=== PATIENT | male | born 1970 | race Caucasian/White ===

== ENCOUNTER 2021-08-23 10:53 | Emergency (ER) | payer OTHER ==
--- OUTSIDE RECORDS SUMMARY | 2021-08-23 10:55 | XMS REPORT | Continuity of Care Document ---
:1970 Author Organization [facility] t Address [address] [place] [address] Care Team Providers Name Role Phone Geronimo ANTOINE Primary Care Physician Unavailable Doctor Unassigned, Name Attending Clinician Unavailable Carmel MANN Attending Clinician CARMEL Attending Clinician Unavailable CARMEL Admitting Clinician Unavailable Payers Payer Name Policy Type Policy Number Effective Date Expiration Date S ource Problems Condition Condition Condition Status Onset Resolution Last Treating Co mments Source Name Details Category Date Date Treatment Clinician Date No known No known Disease Unive rs active active ity of problems problems [facility] [place] [facility] Allergies, Adverse Reactions, Alerts Allergy Allergy Status Severity Reaction(s) Onset Inactive Treating Comm ents Source Name Type Date Date Clinician NO KNOWN Drug Active Univers ALLERGIE Class ity of S [facility] [place] [facility] Gluten Adverse Active IBS, joint [facility] Social History Social Habit Start Date Stop Date Quantity Comments Source Sex Assigned At Uni versity [facility] Smoking Status Start Date Stop Date Source Unknown if ever smoked Universit y [facility] Medications Ordered Filled Start Stop Current Ordering Indication Dosage Frequency Signature Comments Components Source Medication Medication Date Date Medication? Clinician (SIG) Name Name ampicillin- 2020-0 Yes 1.5g 1.5 g, IV U nivers sulbactam 3-21 Piggyback, ity of (UNASYN) 08:00: Q6H ABX, [place] 1.5 g in 00 First dose Medic al NaCl 0.9% on [facility] Branch (NS) 50 mL 11/14/19 at [facility] 0300, Until Discontinu ed, 50 mL
Reas on for Anti-Infec tive: Documented Infection< br>Documen silvano Infection Site: Skin / Soft Tissue
Duration of Therapy: 7 days HYDROcodone 2020- No 1{tbl} 1 tablet, Univers -acetaminop 11-13 Oral, ity of hen (NORCO 07:15: 06:19 ONCE, 1 José Miguel as 5) 5-325 mg 00 :00 dose, Sat Med ical tablet 1 11/14/19 at [facility] h tablet 0215, Routine amoxicillin 2020- No [id number] 1{tbl} Take 1 Univers -clavulanat 11-1305 tablet by it y of e 875-125 00:00: 04:59 mouth [place] mg per 00 :00 every 12 Medical tablet (twelve) Branch hours for 14 days. Ashwagandha Ashwagandha Yes Cesar not [facility] defined [facility] Terbinafine Terbinafine Yes Cesar [address] HCl HCl Antoine [facility] No known No Univers medications [facility] Vital Signs Vital Name Observation Time Observation Value Comments Source Systolic blood 2019-11-14 08:14:00 128 mm[Hg] [facility] Diastolic blood 2019-11-14 08:14:00 88 mm[Hg] [facility] rate 2019-11-14 08:14:00 76 /min [facility] Body temperature 2019-11-14 08:14:00 36.11 Neris [facility] Respiratory rate 2019-11-14 08:14:00 14 /min [facility] Oxygen saturation in 2019-11-14 08:14:00 97 /min [facility] Arterial blood by [facility] Pulse oximetry Branch Body height 2019-11-14 05:42:00 182.9 cm [facility] Body weight 2019-11-14 05:42:00 100.245 kg [facility] BMI 2019-11-14 05:42:00 29.97 kg/m2 [facility] Procedures Procedure Date / Time Performing Clinician Source Performed AUTHORIZATION FOR 2019-11-24 05:01:00 Doctor Unassigned, No [facility] RELEASE OF PHI Name Medical Branch XR HAND 3+ VW LEFT 2019-11-14 06:58:43 Amna Burt [facility] Encounters Start End Encounter Admission Attending Care Care Encounter Source Date/Time Date/Time Type Type Clinicians Facility Department ID 2020-06-13 2020-06-13 Outpatient [facility] [id number] [facility] 2020-05-30 2020-05-30 Outpatient [facility] [id number] [facility] 2019-12-21 2019-12-21 [facility] [id number] 15:19:00 15:19:00 t [facility] Out[facility] Clinics 2019-11-30 2019-11-30 [facility] [id number] 13:45:00 13:45:00 t [employer] [facility] Medicine Outpat[facility] Clinics 2019-11-24 2019-11-24 Orders Doctor MARADIAGA [id number] Univers 00:00:00 00:00:00 Only Unassigned, TESHA [id number] ity of [place] [facility] [id number] José Miguel as [id number] [facility] 009 Branch 2019-11-20 2019-11-20 [facility] [id number] 16:35:00 16:35:00 t [facility] Medicine Outpati ent Clinics 2019-11-14 2019-11-14 Emergency Carmel, CLARK [id number] Univers 00:45:12 03:22:00 [facility] [id number] [id number] [id number] [facility] 014 Branch 2019-11-14 2019-11-14 Emergency X [facility] [id number] Univers 00:45:12 03:22:00 AMNA radhatank [facility] 2018-01-29 2018-01-29 Outpatient Wiliam Castellanos [id number] 08:15:00 08:15:00 [employer] [facility] ent [facility] 2017-11-26 2017-11-26 Outpatient Wiliam Castellanos [id number] [facility] St 09:15:00 09:15:00 [employer] [facility] [employer] [facility] ent Clinics Results This patient has no known results.
--- NOTE | 2021-08-23 12:19 | EDPHYS ---
Physician Documentation [facility] Name: Marques Soni Age: 51 yrs Sex: Male : 1970 Arrival Date: 08/23/2021 Time: 10:56 Bed 11 Private MD: ED Physician Jose Daniel Machado HPI: 08/23 13:06 This 51 yrs old Male presents to ER via Ambulatory with complaints of r/o covid. kdr 13:06 The patient or guardian reports flu symptoms, arthralgias, low-grade fever, myalgias, kdr no appetite. Onset: The symptoms/episode began/occurred suddenly, 1 day(s) ago. Severity of symptoms: At their worst the symptoms were mild. The patient has not experienced similar symptoms in the past. Patient states that he has had aches and fever and chills for about 1 day. He has a reports that he is unvaccinated. Historical: - Allergies: 12:20 No Known Allergies; jl7 - Home Meds: 12:20 None [Active]; jl7 - PMHx: 12:20 None; jl7 - PSHx: 12:20 None; jl7 - Immunization history:: Client reports having NOT received the Covid vaccine. - Social history:: Smoking status: Patient denies any tobacco usage or history of. ROS: 13:06 Neck: Negative for injury, pain, and swelling, Cardiovascular: Negative for chest pain, kdr palpitations, and edema, Respiratory: Negative for shortness of breath, cough, wheezing, and pleuritic chest pain, Abdomen/GI: Negative for abdominal pain, nausea, vomiting, diarrhea, and constipation, Back: Negative for injury and pain, : Negative for injury, bleeding, discharge, and swelling, MS/Extremity: Negative for injury and deformity, Skin: Negative for injury, rash, and discoloration, Neuro: Negative for headache, weakness, numbness, tingling, and seizure activity. Psych: Negative for depression, anxiety, suicide ideation, homicidal ideation, and hallucinations, Allergy/Immunology: Negative for hives, rash, and allergies, Endocrine: Negative for neck swelling, polydipsia, polyuria, polyphagia, and marked weight changes, Hematologic/Lymphatic: Negative for swollen nodes, abnormal bleeding, and unusual bruising. 13:06 Constitutional: Positive for body aches, chills, fatigue, fever, malaise, Negative for poor PO intake. 13:09 Constitutional: See notation elsewhere kdr Exam: 13:06 Constitutional: This is a well developed, well nourished patient who is awake, alert, kdr and in no acute distress. Head/Face: Normocephalic, atraumatic. Eyes: Pupils equal round and reactive to light, extra-ocular motions intact. Lids and lashes normal. Conjunctiva and sclera are non-icteric and not injected. Cornea within normal limits. Periorbital areas with no swelling, redness, or edema. Neck: Trachea midline, no thyromegaly or masses palpated, and no cervical lymphadenopathy. Supple, full range of motion without nuchal rigidity, or vertebral point tenderness. No Meningismus. Chest/axilla: Normal chest wall appearance and motion. Nontender with no deformity. No lesions are appreciated. Cardiovascular: Regular rate and rhythm with a normal S1 and S2. No gallops, murmurs, or rubs. Normal PMI, no JVD. No pulse deficits. Respiratory: Lungs have equal breath sounds bilaterally, clear to auscultation and percussion. No rales, rhonchi or wheezes noted. No increased work of breathing, no retractions or nasal flaring. Abdomen/GI: Soft, non-tender, with normal bowel sounds. No distension or tympany. No guarding or rebound. No evidence of tenderness throughout. Back: No spinal tenderness. No costovertebral tenderness. Full range of motion. Skin: Warm, dry with normal turgor. Normal color with no rashes, no lesions, and no evidence of cellulitis. MS/ Extremity: Pulses equal, no cyanosis. Neurovascular intact. Full, normal range of motion. Neuro: Awake and alert, GCS 15, oriented to person, place, time, and situation. Cranial nerves II-XII grossly intact. Motor strength 5/5 in all extremities. Sensory grossly intact. Cerebellar exam normal. Normal gait. Psych: Awake, alert, with orientation to person, place and time. Behavior, mood, and affect are within normal limits. Vital Signs: 12:18 BP 144 / 100; Pulse 84; Resp 17; Temp 99.9; Pulse Ox 97% on R/A; Weight 97.52 kg; jl7 Height 6 ft. (182.88 cm); Pain 12/03; 12:18 Body Mass Index 29.16 (97.52 kg, 182.88 cm) jl7 MDM: 12:18 Patient medically screened. kdr 13:06 Data reviewed: vital signs, nurses notes, lab test result(s). Counseling: I had a kdr detailed discussion with the patient and/or guardian regarding: the historical points, exam findings, and any diagnostic results supporting the discharge/admit diagnosis, lab results, the need for outpatient follow up. Administered Medications: No medications were administered Disposition Summary: 08/23/21 12:18 Discharge Ordered Location: Home kdr Problem: new kdr Symptoms: are unchanged kdr Condition: Stable kdr Diagnosis - Acute upper respiratory infection, unspecified kdr - Viral infection, unspecified kdr Followup: kdr - With: Private Physician - When: 2 - 3 days - Reason: If symptoms return, Further diagnostic work-up, Recheck today's complaints, Continuance of care, Re-evaluation by your physician Discharge Instructions: - Discharge Summary Sheet kdr - Upper Respiratory Infection, Adult, [id number] kdr - COVID-19: What Your Test Results Mean - [facility] kdr - COVID-19 Frequently Asked Questions kdr - 10 Things You Can Do to Manage Your COVID-19 Symptoms at Home - [facility] kdr - COVID-19: Quarantine vs. Isolation - [facility] kdr Forms: - Medication Reconciliation Form kdr - Thank You Letter kdr Signatures: Dispatcher [employer] Jose Daniel Reynoso MD MD kdr Enrrique Bronson RN RN jl7
--- NOTE | 2021-08-23 12:27 | ER ---
Nurse's Notes [facility] Name: Marques Soni Age: 51 yrs Sex: Male : 1970 Arrival Date: 08/23/2021 Time: 10:56 Bed 11 Private MD: Diagnosis: Acute upper respiratory infection, unspecified;Viral infection, unspecified Presentation: 08/23 12:18 Chief complaint: Patient states: Body aches, fever, chills x 1 day. Coronavirus screen: jl Vaccine status: Patient reports being unvaccinated. chills, fever, muscle pain, Client presents with at least one sign or symptom that may indicate coronavirus-19. Standard/surgical mask placed on the client. Ebola Screen: No symptoms or risks identified at this time. Initial Sepsis Screen: Does the patient meet any 2 criteria? No. Patient's initial sepsis screen is negative. Does the patient have a suspected source of infection? No. Patient's initial sepsis screen is negative. Risk Assessment: Do you want to hurt yourself or someone else? Patient reports no desire to harm self or others. Onset of symptoms was August 22, 2021. 12:18 Method Of Arrival: Ambulatory [facility] 12:18 Acuity: BALTA 4 jl7 Triage Assessment: 12:20 General: Appears in no apparent distress. uncomfortable, Behavior is calm, cooperative, jl7 appropriate for age. Pain: Complains of pain in all over Pain currently is 4 out of 10 on a pain scale. Neuro: Level of Consciousness is awake, alert, obeys commands, Oriented to person, place, time, situation. Cardiovascular: Patient's skin is warm and dry. Respiratory: Airway is patent Respiratory effort is even, unlabored, Respiratory pattern is regular, symmetrical. Derm: Skin is pink, warm \T\ dry. Historical: - Allergies: 12:20 No Known Allergies; jl7 - Home Meds: 12:20 None [Active]; jl7 - PMHx: 12:20 None; jl7 - PSHx: 12:20 None; jl7 - Immunization history:: Client reports having NOT received the Covid vaccine. - Social history:: Smoking status: Patient denies any tobacco usage or history of. Vital Signs: 12:18 BP 144 / 100; Pulse 84; Resp 17; Temp 99.9; Pulse Ox 97% on R/A; Weight 97.52 kg; jl7 Height 6 ft. (182.88 cm); Pain 4/10; 12:18 Body Mass Index 29.16 (97.52 kg, 182.88 cm) [facility] ED Course: 10:56 Patient arrived in ED. as 12:08 Enrrique Bronson, VESTA is Primary Nurse. [facility] 12:17 Jose Daniel Machado MD is Attending Physician. [facility] 12:20 Triage completed. [facility] 12:20 Arm band placed on right wrist. [facility] 12:21 COVID swab sent to lab. [facility] 12:26 Patient did not have IV access during this emergency room visit. 7 Administered Medications: No medications were administered Outcome: 12:18 Discharge ordered by . kdr 12:26 Discharged to home ambulatory. [facility] 12:26 Condition: stable 12:26 Discharge instructions given to patient, Instructed on discharge instructions, follow up and referral plans. Demonstrated understanding of instructions, follow-up care. 12:26 Patient left the ED. [facility] Signatures: Jose Daniel Machado MD MD [facility] Rachel Hall Maria [facility] Enrrique Bronson, VESTA RN [facility] Shakila Post Corrections: (The following items were deleted from the chart) 08/25 14:33 14:30 Addendum: COVID-19 Result: Positive result giiven to ED physician to notify pt. Physician: Enrrique Bronson RN Physician was able to contact pt and pt was notified of positive COVID-19 swab result. Physician answered pt questions. eb
[2021-08-23 12:30] VITALS: BP 144/100; TEMP 99.9; O2SAT 97
== END 2021-08-23 12:26 | disposition home or self-care (01) ==
LOC: ER 10:53
DX: U07.1 COVID-19 (principal); J06.9 Acute upper respiratory infection, unspecified; B34.9 Viral infection, unspecified
CPT/HCPCS: 0240U; 99281; 87804